=== PATIENT | female | born 1955 | race Caucasian/White ===

== ENCOUNTER 2017-01-22 19:26 | Inpatient (IN) ==
[2017-01-22 22:16] LABS: Lactic Acid 1.1 MMOL/L (0.4-2.0)
[2017-01-22] MEDS ORDERED: ALUM/MAG/SIMETH/LIDO VISC 1:1 30 ML BOTTLE PO STA (22:21)
[2017-01-22] MEDS ORDERED: PANTOPRAZOLE 40 MG VIAL IV STA (22:21)
[2017-01-22] MEDS ORDERED: ONDANSETRON 4 MG/2 ML VIAL IV STA (22:21)
[2017-01-22] MEDS ORDERED: PANTOPRAZOLE 40 MG VIAL IV ONE (22:46)
[2017-01-22] MEDS ORDERED: ONDANSETRON 4 MG/2 ML VIAL ONE (22:46)
[2017-01-22] MEDS ORDERED: ALUM/MAG/SIMETH/LIDO VISC 1:1 30 ML BOTTLE PO ONE (22:47)
[2017-01-22 23:55] LABS: PT Patient Result 10.2 SECS
[2017-01-23 00:06] LABS: Alanine Aminotransferase 456 U/L (13-56); Albumin 3.3 G/DL (3.4-5.0); Alkaline Phosphatase 278 U/L (45-117); Amylase 98 U/L (25-115); Aspartate Amino Transferase 389 U/L (0-37); Blood Urea Nitrogen 42 MG/DL (7-18); Calcium 9.1 MG/DL (8.5-10.1); Glucose 122 MG/DL (74-106); Magnesium 2.7 MG/DL (1.8-2.4); Osmolality,Calculated 284.8 MOS/KG (273-304); Potassium 2.8 MMOL/L (3.5-5.1); Sodium 137 MMOL/L (136-145); Total Protein 6.9 G/DL (6.4-8.3); Troponin I Only < 0.015 NG/ML (0.00-0.045)
[2017-01-23 00:22] LABS: Basophils % 0.2 % (0.0-0.8); Eosinophils % 0.2 % (0.00-10.9); Hematocrit 34.5 VOL% (35.7-47.0); Hemoglobin 11.9 GM/DL (12.0-16.0); Immature Granulocytes % 6.9 %; Immature Granulocytes Absolute 0.56 #; Lymphocytes # 1.5 10*3/uL (1.4-4.0); Lymphocytes % 18.2 % (21.3-54.2); Mean Corpuscular HGB Conc 34.5 GM/DL (32-36); Mean Corpuscular Hemoglobin 32 PG (27-34); Mean Corpuscular Volume 92.5 FL (87-102); Mean Platelet Volume 10.7 FL (9.6-12.0); Monocytes # 0.7 10*3/uL (0.11-0.8); Monocytes % 8.2 % (1.7-12.7); NRBC # 0.08 10*3/uL; Neutrophils # 5.4 10*3/uL (1.4-7.4); Neutrophils % 66.3 % (38.7-73.9); Red Blood Count 3.73 MC/CUMM (3.8-5.5); Red Cell Distribution Width 13.2 % (9.3-17.3); White Blood Count 8.1 T/CUMM (4-12)
[2017-01-23 00:27] LABS: Platelet Count 18 T/CUMM (130-400)
[2017-01-23] MEDS ORDERED: POTASSIUM CHLORIDE 20 MEQ TABLET PO STA (00:35)
[2017-01-23 00:47] LABS: Apearance,Urine CLEAR (Clear); Bacteria,Urine Occasional /HPF (Few); Bilirubin,Urine Negative (Negative); Blood, Urine Negative (Negative); Glucose,Urine (UA) Negative (Negative); Hyaline Casts,Urine 2 /LPF (0-3); Ketones,Urine Negative (Negative); Mucus,Urine Occasional /LPF (Occasional); Nitrite,Urine Negative (Negative); Protein,Urine Negative; RBC,Urine 1 /HPF (0-4); Urine Color Yellow (Yellow); Urine Specific Gravity 1.006 (1.001-1.035); Urine Urobilinogen < 2.0 EU/DL (0.2-1.0)
[2017-01-23 00:47] LABS: Band Neutrophils 10 % (0-10); Lymphocytes 23 % (20-55); Myelocytes 3 %; Nucleated Red Blood Cells 2 (0-5); Platelet Estimate Decreased; Segmented Neutrophils 60 % (50-85); Total Cells Counted 100
[2017-01-23] MEDS ORDERED: ONDANSETRON 4 MG/2 ML VIAL IV PRN (02:16)
[2017-01-23] MEDS ORDERED: POTASSIUM CHLORIDE INJ 20 MEQ in SODIUM CHLORIDE 0.45% 1,000 ML IV SCH (02:30)
[2017-01-23] MEDS ORDERED: POTASSIUM CHLORIDE 20 MEQ TABLET PO ONE (03:13)
[2017-01-23] MEDS: ALBUTEROL/IPRATROPIUM 3 ML NEB RESP TX PRN (07:41)
[2017-01-23 10:12] LABS: Basophils % 0.4 % (0.0-0.8); Eosinophils % 0.1 % (0.00-10.9); Hematocrit 35.6 VOL% (35.7-47.0); Hemoglobin 12.3 GM/DL (12.0-16.0); Immature Granulocytes % 6.2 %; Immature Granulocytes Absolute 0.47 #; Lymphocytes # 1.3 10*3/uL (1.4-4.0); Lymphocytes % 17.2 % (21.3-54.2); Mean Corpuscular HGB Conc 34.6 GM/DL (32-36); Mean Corpuscular Hemoglobin 32 PG (27-34); Mean Corpuscular Volume 93.7 FL (87-102); Mean Platelet Volume 11.3 FL (9.6-12.0); Monocytes # 0.6 10*3/uL (0.11-0.8); Monocytes % 7.6 % (1.7-12.7); NRBC # 0.08 10*3/uL; Neutrophils # 5.2 10*3/uL (1.4-7.4); Neutrophils % 68.5 % (38.7-73.9); Red Cell Distribution Width 13.3 % (9.3-17.3); White Blood Count 7.6 T/CUMM (4-12)
[2017-01-23 10:23] LABS: Platelet Count 19 T/CUMM (130-400)
[2017-01-23 10:33] LABS: Band Neutrophils 4 % (0-10); Lymphocytes 15 % (20-55); Nucleated Red Blood Cells 1 (0-5); Segmented Neutrophils 74 % (50-85); Total Cells Counted 100
[2017-01-23 10:34] LABS: Hypochromasia 1+; Platelet Estimate Decreased
[2017-01-23] MEDS ORDERED: IPRATROPIUM 500 MCG/2.5 ML NEB RESP TX PRN (10:36)
[2017-01-23 10:49] LABS: Bilirubin,Total 1.7 MG/DL (0.2-1.0); Calcium 8.9 MG/DL (8.5-10.1); Osmolality,Calculated 290.3 MOS/KG (273-304); Potassium 3.4 MMOL/L (3.5-5.1); Risk Ratio 2.91; Total Protein 6.4 G/DL (6.4-8.3)
[2017-01-23] MEDS ORDERED: SODIUM CHLORIDE 0.9% 1,000 ML IV PRN (11:12)
[2017-01-23] MEDS ORDERED: methylPREDNISolone SOD SUC 125 MG/2 ML VIAL IV STA (11:12)
[2017-01-23] MEDS ORDERED: methylPREDNISolone SOD SUC 125 MG/2 ML VIAL ONE (12:21)
[2017-01-23] MEDS ORDERED: oxyCODONE/ACETAMINOPHEN 5-325 MG TABLET ONE (12:21)
[2017-01-23] MEDS: oxyCODONE/ACETAMINOPHEN 5-325 MG TABLET PO SCH ×2 (12:35→17:35)
[2017-01-23] MEDS ORDERED: ALBUTEROL 2.5 MG/3 ML NEB RESP TX SCH (14:00)
[2017-01-23 14:40] LABS: Carcinoembryonic Antigen 49.2 NG/ML (0.0-5.0)
[2017-01-23 15:08] LABS: Cancer Antigen 19-9 169.8 U/ML (0-37)
[2017-01-23] MEDS: methylPREDNISolone SOD SUC 40 MG/1 ML VIAL IV SCH (17:35)
[2017-01-23] MEDS: SODIUM CHLOR 0.45% KCL 20 MEQ 20 MEQ/1,000 ML BAG IV SCH (17:35)
[2017-01-23] MEDS: traZODone 50 MG TABLET PO SCH (20:48)
[2017-01-23] MEDS: GABAPENTIN 600 MG TABLET PO SCH (20:48)
[2017-01-23] MEDS ORDERED: TORSEMIDE 100 MG PO SCH (21:00)
[2017-01-24] MEDS ORDERED: methylPREDNISolone SOD SUC 125 MG/2 ML VIAL IV SCH
[2017-01-24] MEDS: methylPREDNISolone SOD SUC 40 MG/1 ML VIAL IV SCH ×5 (00:52→23:22)
[2017-01-24] MEDS: oxyCODONE/ACETAMINOPHEN 5-325 MG TABLET PO SCH ×4 (00:55→18:12)
[2017-01-24] MEDS: SODIUM CHLOR 0.45% KCL 20 MEQ 20 MEQ/1,000 ML BAG IV SCH ×2 (03:39→23:22)
[2017-01-24] MEDS: ALBUTEROL/IPRATROPIUM 3 ML NEB RESP TX PRN ×2 (04:12→12:57)
[2017-01-24 05:08] LABS: Basophils % 0.3 % (0.0-0.8); Eosinophils % 0.1 % (0.00-10.9); Hematocrit 33.6 VOL% (35.7-47.0); Hemoglobin 11.5 GM/DL (12.0-16.0); Immature Granulocytes % 6.7 %; Immature Granulocytes Absolute 0.46 #; Lymphocytes # 0.9 10*3/uL (1.4-4.0); Lymphocytes % 13.1 % (21.3-54.2); Mean Corpuscular HGB Conc 34.2 GM/DL (32-36); Mean Corpuscular Hemoglobin 32 PG (27-34); Mean Corpuscular Volume 94.1 FL (87-102); Mean Platelet Volume 10.6 FL (9.6-12.0); Monocytes # 0.5 10*3/uL (0.11-0.8); Monocytes % 7.9 % (1.7-12.7); NRBC # 0.12 10*3/uL; Neutrophils # 4.9 10*3/uL (1.4-7.4); Neutrophils % 71.9 % (38.7-73.9); Platelet Count 44 T/CUMM (130-400); Red Blood Count 3.57 MC/CUMM (3.8-5.5); Red Cell Distribution Width 13.4 % (9.3-17.3); White Blood Count 6.9 T/CUMM (4-12)
[2017-01-24 05:31] LABS: Band Neutrophils 7 % (0-10); Lymphocytes 12 % (20-55); Myelocytes 4 %; Platelet Estimate Decreased; Segmented Neutrophils 75 % (50-85); Total Cells Counted 100
[2017-01-24 05:57] LABS: Albumin 2.8 G/DL (3.4-5.0); Calcium 9.1 MG/DL (8.5-10.1); Osmolality,Calculated 289.3 MOS/KG (273-304); Potassium 3.4 MMOL/L (3.5-5.1); Total Protein 6.1 G/DL (6.4-8.3)
[2017-01-24] MEDS: LEVOTHYROXINE 125 MCG TABLET PO SCH (06:28)
[2017-01-24] MEDS ORDERED: ESCITALOPRAM 10 MG TABLET PO SCH (09:00)
[2017-01-24] MEDS: POTASSIUM CHLORIDE 20 MEQ TABLET PO SCH (09:23)
[2017-01-24] MEDS: GABAPENTIN 600 MG TABLET PO SCH ×3 (11:22→21:09)
[2017-01-24] MEDS: ESCITALOPRAM 10 MG TABLET PO SCH (21:09)
[2017-01-24] MEDS: traZODone 50 MG TABLET PO SCH (21:09)
[2017-01-25] MEDS: oxyCODONE/ACETAMINOPHEN 5-325 MG TABLET PO SCH ×4 (01:31→17:21)
[2017-01-25 06:12] LABS: Basophils % 0.4 % (0.0-0.8); Eosinophils % 0.1 % (0.00-10.9); Hematocrit 31.9 VOL% (35.7-47.0); Hemoglobin 10.9 GM/DL (12.0-16.0); Immature Granulocytes % 7.5 %; Immature Granulocytes Absolute 0.53 #; Lymphocytes # 1.1 10*3/uL (1.4-4.0); Lymphocytes % 15.1 % (21.3-54.2); Mean Corpuscular HGB Conc 34.2 GM/DL (32-36); Mean Corpuscular Hemoglobin 32 PG (27-34); Mean Corpuscular Volume 94.1 FL (87-102); Mean Platelet Volume 12.8 FL (9.6-12.0); Monocytes # 0.6 10*3/uL (0.11-0.8); Monocytes % 7.8 % (1.7-12.7); NRBC # 0.12 10*3/uL; Neutrophils # 4.9 10*3/uL (1.4-7.4); Neutrophils % 69.1 % (38.7-73.9); Platelet Count 13 T/CUMM (130-400); Red Blood Count 3.39 MC/CUMM (3.8-5.5); Red Cell Distribution Width 13.5 % (9.3-17.3); White Blood Count 7.1 T/CUMM (4-12)
[2017-01-25] MEDS: methylPREDNISolone SOD SUC 40 MG/1 ML VIAL IV SCH ×3 (06:13→19:33)
[2017-01-25] MEDS: LEVOTHYROXINE 125 MCG TABLET PO SCH (06:38)
[2017-01-25 06:44] LABS: Albumin 2.9 G/DL (3.4-5.0); Bilirubin,Total 3.1 MG/DL (0.2-1.0); Calcium 9.1 MG/DL (8.5-10.1); Osmolality,Calculated 279.7 MOS/KG (273-304); Potassium 3.9 MMOL/L (3.5-5.1)
[2017-01-25 06:48] LABS: Band Neutrophils 3 % (0-10); Hypochromasia 1+; Lymphocytes 15 % (20-55); Microcytosis 1+; Platelet Estimate Decreased; Promyelocytes 1 %; Segmented Neutrophils 73 % (50-85); Total Cells Counted 100
[2017-01-25] MEDS ORDERED: GLYCOPYRROLATE 0.4 MG/2 ML VIAL IM ONE (07:00)
[2017-01-25] MEDS ORDERED: PROMETHAZINE 25 MG/1 ML VIAL IM ONE (07:00)
[2017-01-25] MEDS ORDERED: MEPERIDINE 50 MG/1 ML VIAL IM ONE (07:00)
[2017-01-25] MEDS ORDERED: MIDAZOLAM 2 MG/2 ML VIAL ONE (07:09)
[2017-01-25] MEDS ORDERED: LIDOCAINE 2% VISCOUS 100 ML BOTTLE SWISH/SPIT ONE (07:30)
[2017-01-25] MEDS ORDERED: LIDOCAINE 2% 20 ML VIAL RESP TX ONE (07:30)
[2017-01-25] MEDS ORDERED: MIDAZOLAM 2 MG/2 ML VIAL IV ONE (07:30)
[2017-01-25] MEDS ORDERED: LIDOCAINE 1% 20 ML VIAL MISC INJ ONE (07:30)
[2017-01-25] MEDS: POTASSIUM CHLORIDE 20 MEQ TABLET PO SCH (08:24)
[2017-01-25] MEDS ORDERED: SODIUM CHLORIDE 0.9% 1,000 ML IV PRN (10:40)
[2017-01-25] MEDS: ALBUTEROL/IPRATROPIUM 3 ML NEB RESP TX PRN ×2 (15:20→15:32)
[2017-01-25] MEDS ORDERED: FUROSEMIDE 40 MG/4 ML VIAL ONE (15:31)
[2017-01-25] MEDS ORDERED: NITROGLYCERIN 2% OINT 1 INCH/GM PACK TOP ONE (15:45)
[2017-01-25] MEDS ORDERED: FUROSEMIDE 40 MG/4 ML VIAL IV ONE (15:45)
[2017-01-25] MEDS: MORPHINE 2 MG/1 ML SYRINGE IV PRN (16:07)
[2017-01-25] MEDS: SODIUM CHLOR 0.45% KCL 20 MEQ 20 MEQ/1,000 ML BAG IV SCH ×2 (16:10→16:13)
[2017-01-25] MEDS: LACTULOSE 20 GM/30 ML UDCUP PO SCH ×3 (16:11→21:17)
[2017-01-25] MEDS: traZODone 50 MG TABLET PO SCH (21:13)
[2017-01-25] MEDS: ESCITALOPRAM 10 MG TABLET PO SCH ×2 (21:13→21:17)
[2017-01-25] MEDS: GABAPENTIN 600 MG TABLET PO SCH (21:13)
[2017-01-26] MEDS: methylPREDNISolone SOD SUC 40 MG/1 ML VIAL IV SCH ×3 (00:13→13:29)
[2017-01-26] MEDS: oxyCODONE/ACETAMINOPHEN 5-325 MG TABLET PO SCH ×2 (00:13→06:06)
[2017-01-26 05:45] LABS: Basophils % 0.3 % (0.0-0.8); Hematocrit 28.9 VOL% (35.7-47.0); Hemoglobin 9.8 GM/DL (12.0-16.0); Immature Granulocytes % 6.4 %; Immature Granulocytes Absolute 0.38 #; Lymphocytes # 0.9 10*3/uL (1.4-4.0); Lymphocytes % 15.5 % (21.3-54.2); Mean Corpuscular HGB Conc 33.9 GM/DL (32-36); Mean Corpuscular Hemoglobin 32 PG (27-34); Mean Corpuscular Volume 93.5 FL (87-102); Mean Platelet Volume 11.4 FL (9.6-12.0); Monocytes # 0.5 10*3/uL (0.11-0.8); Monocytes % 9.1 % (1.7-12.7); Neutrophils # 4.1 10*3/uL (1.4-7.4); Neutrophils % 68.7 % (38.7-73.9); Red Blood Count 3.09 MC/CUMM (3.8-5.5); Red Cell Distribution Width 13.9 % (9.3-17.3); White Blood Count 5.9 T/CUMM (4-12)
[2017-01-26 05:54] LABS: Platelet Count 19 T/CUMM (130-400)
[2017-01-26] MEDS: LEVOTHYROXINE 125 MCG TABLET PO SCH (06:06)
[2017-01-26 06:48] LABS: Band Neutrophils 7 % (0-10); Lymphocytes 16 % (20-55); Nucleated Red Blood Cells 2 (0-5); Segmented Neutrophils 66 % (50-85); Total Cells Counted 100
[2017-01-26 06:49] LABS: Hypochromasia 1+; Microcytosis 1+; Platelet Estimate Decreased
[2017-01-26] MEDS ORDERED: oxyCODONE/ACETAMINOPHEN 5-325 MG TABLET PO PRN (08:25)
[2017-01-26] MEDS: PIPERACILLIN/TAZOBACTAM 3,375 MG in SODIUM CHLORIDE 0.9% 100 ML IV SCH ×2 (09:24→18:45)
[2017-01-26] MEDS: LACTULOSE 20 GM/30 ML UDCUP PO SCH ×2 (09:24→20:57)
[2017-01-26] MEDS: POTASSIUM CHLORIDE 20 MEQ TABLET PO SCH (09:24)
[2017-01-26] MEDS: ALBUTEROL/IPRATROPIUM 3 ML NEB RESP TX PRN ×2 (10:00→14:15)
[2017-01-26] MEDS ORDERED: traZODone 50 MG TABLET PO PRN (11:54)
[2017-01-26] MEDS: SODIUM CHLOR 0.45% KCL 20 MEQ 20 MEQ/1,000 ML BAG IV SCH (13:32)
[2017-01-26] MEDS: ALBUTEROL/IPRATROPIUM 3 ML NEB RESP TX SCH ×2 (19:12→22:14)
[2017-01-26] MEDS: MORPHINE 2 MG/1 ML SYRINGE IV PRN (22:08)
[2017-01-27] MEDS: methylPREDNISolone SOD SUC 40 MG/1 ML VIAL IV SCH (00:35)
[2017-01-27] MEDS: SODIUM CHLOR 0.45% KCL 20 MEQ 20 MEQ/1,000 ML BAG IV SCH (02:10)
[2017-01-27] MEDS: PIPERACILLIN/TAZOBACTAM 3,375 MG in SODIUM CHLORIDE 0.9% 100 ML IV SCH ×2 (02:51→11:19)
[2017-01-27] MEDS: LEVOTHYROXINE 125 MCG TABLET PO SCH (06:27)
[2017-01-27] MEDS: ALBUTEROL/IPRATROPIUM 3 ML NEB RESP TX SCH ×2 (06:49→11:10)
[2017-01-27] MEDS: LACTULOSE 20 GM/30 ML UDCUP PO SCH (11:19)
[2017-01-27] MEDS: POTASSIUM CHLORIDE 20 MEQ TABLET PO SCH (11:19)
[2017-01-27] MEDS ORDERED: LORazepam 1 MG TABLET PO STA (11:46)
[2017-01-27 12:06] VITALS: BP 155/70
== END 2017-01-27 13:15 | disposition hospice, home (50) | DRG 181 ==
LOC: N.ED 19:26 → SUATTDRO 01-23 02:16 → N.EDINP 01-23 02:16 → N.4E 01-23 15:31
PROVIDERS: ADMIT Internal Medicine; ATTEND Internal Medicine
PROC: BRONCHB (2017-01-25 07:20)